=== PATIENT | female | born 1960 ===

== ENCOUNTER 2023-02-15 10:15 | Outpatient (CLI) | payer OTHER ==
[~2023-02-15 10:15] MED LIST: FLONASE16 GM; WELLBU PO
== END 2023-02-15 10:24 | disposition home or self-care (01) ==
LOC: LAB 10:15
PROVIDERS: ATTEND Internal Medicine
DX: U07.1 COVID-19 (principal); Z11.52 Encounter for screening for COVID-19

== ENCOUNTER 2023-02-17 08:51 | Day surgery (SDC) | payer OTHER ==
[2023-02-17] MEDS ORDERED: TRAMADOL HCL50 MG PO (11:52)
[2023-02-17] MEDS ORDERED: KETO10TA2 PO (11:52)
[2023-02-17] MEDS ORDERED: MIRALAX17 GM PO (11:52)
[2023-02-17] MEDS ORDERED: TYLENOL ARTHRI650 MG PO (11:52)
== END 2023-02-17 15:00 | disposition home or self-care (01) ==
LOC: CIR.AMB 08:51
PROVIDERS: ATTEND Surgery
DX: K42.0 Umbilical hernia with obstruction, without gangrene (principal); I10 Essential (primary) hypertension; Z20.822 Contact with and (suspected) exposure to COVID-19
CPT/HCPCS: 49592; C1781